=== PATIENT | male | born 1960 | race Caucasian/White ===

== ENCOUNTER 2016-10-23 19:50 | Emergency (ER) | payer MEDICAID ==
[~2016-10-23] VITALS: Ht 185.4 cm; Wt 81.6 kg
[2016-10-23 19:57] VITALS: BP 127/84
[2016-10-23] MEDS ORDERED: CYCLOBENZAPRINE HCL 10 MG TAB PO ONE (21:30)
[2016-10-23] MEDS ORDERED: IBUPROFEN 600 MG TAB PO ONE (21:30)
[2016-10-23] MEDS ORDERED: NEOMYCIN-BACITRACIN-POLYM UNITDOSE PKG TOP OINT TOP ONE (21:30)
[2016-10-23] MEDS ORDERED: BACITRACIN-POLYMYXIN B TOPICAL OINT UD TOP ONE (21:46)
== END 2016-10-23 21:54 | disposition home or self-care (01) ==
LOC: ER 19:52
DX: S16.1XXA Strain of muscle, fascia and tendon at neck level, initial encounter (principal); S00.03XA Contusion of scalp, initial encounter; S00.81XA Abrasion of other part of head, initial encounter; R51 Headache; Z88.1 Allergy status to other antibiotic agents; Z88.8 Allergy status to other drugs, medicaments and biological substances; W20.8XXA Other cause of strike by thrown, projected or falling object, initial encounter; Y93.89 Activity, other specified; Y99.8 Other external cause status; Y92.89 Other specified places as the place of occurrence of the external cause
CPT/HCPCS: 70450; 72125

== ENCOUNTER 2019-11-29 13:53 | Emergency (ER) | payer MEDICAID ==
[~2019-11-29] VITALS: Ht 182.9 cm; Wt 81.6 kg
[2019-11-29 13:54] VITALS: BP 129/93
== END 2019-11-29 15:22 | disposition home or self-care (01) ==
LOC: ER 13:53
DX: J06.9 Acute upper respiratory infection, unspecified (principal)
CPT/HCPCS: 71046

== ENCOUNTER 2024-06-02 01:55 | Inpatient (IN) | payer SELFPAY ==
[~2024-06-02] VITALS: Ht 180.3 cm; Wt 83.1 kg
[~2024-06-02 01:55] MED LIST: METH4PAK PO
[2024-06-02 02:30] VITALS: PULSE 96; RESP 18; O2SAT 97
[2024-06-02 02:30] LABS: Basophils # (auto) 0.1 10 ^3/uL (0-0.2); Basophils % (auto) 0.5 % (0.0-2.0); Eosinophils # (auto) 0.1 10 ^3/uL (0-0.8); Lymphocytes # (auto) 0.3 10 ^3/uL (0.4-5.4); Mean Corpuscular Hemoglobin 30.6 pg (28.0-32.0); White Blood Cell 13.5 10^3/uL (4.4-10.8)
[2024-06-02 02:31] LABS: Eosinophils % (auto) 0.9 % (0.0-7.0); Hemoglobin 18.8 g/dL (13.5-17.5); Lymphocytes % (auto) 2.2 % (10.0-50.0); Mean Corpuscular Hgb Conc. 33.2 g/dL (32.0-36.0); Mean Corpuscular Volume 92.3 fL (80.0-100.0); Monocytes # (auto) 0.5 10 ^3/uL (0-1.3); Neutrophils # (auto) 12.5 10 ^3/uL (1.6-8.6); Neutrophils % (auto) 92.4 % (37.0-80.0); Nucleated Red Blood Cells % 1.1 %; Platelet Count (auto) 279 10^3/uL (140-450); Red Blood Cells 6.14 10^6/uL (4.5-5.90); Red Cell Distribution Width 14.1 % (11.8-14.3)
[2024-06-02 02:33] LABS: Hematocrit 56.7 % (41.0-53.0)
[2024-06-02 02:44] LABS: Alanine Aminotransferase 18 U/L (7-40); Albumin 4.7 g/dL (3.2-4.8); Alkaline Phosphatase 148 U/L (46-116); Anion Gap 7 (5-15); Aspartate Aminotransferase 18 U/L (13-40); BUN/Creatinine Ratio 9.9 (10.0-20.0); Bilirubin, Total 0.7 mg/dL (0.2-1.0); Blood Urea Nitrogen 12 mg/dL (9-23); Calcium 9.9 mg/dL (8.7-10.4); Carbon Dioxide 20 mmol/L (20-31); Chloride 107 mmol/L (98-107); Glucose 109 mg/dL (74-106); Lipase 62 U/L (12-53); Potassium 4.7 mmol/L (3.5-5.1); Sodium 134 mmol/L (136-145)
[2024-06-02 02:44] LABS: Lactic Acid w/Reflex 2.1 mmol/L (0.4-2.0)
[2024-06-02] MEDS: SODIUM CHLORIDE 0.9% 1,000 ML IV ONE ×3 (02:57→07:39)
[2024-06-02] MEDS: PANTOPRAZOLE 40 MG/10 ML VIAL INJ IV ONE (02:59)
[2024-06-02] MEDS: ONDANSETRON HCL 4 MG/2 ML VIAL IV ONE ×2 (03:00→09:28)
[2024-06-02] MEDS: MORPHINE SULFATE 4 MG/ML SYR/VIAL IV ONE (03:01)
[2024-06-02] MEDS: IOHEXOL 300 MG/ML 100ML BOTTLE IJ ONE (03:16)
[2024-06-02] MEDS: cefTRIAXone 1GM/50ML D5W 50 ML IV ONE (06:43)
[2024-06-02] MEDS: metroNIDAZOLE 500MG/100ML 100 ML IV ONE (07:04)
[2024-06-02] MEDS ORDERED: HYDROcodone-ACET 5/325MG TAB PO PRN (09:30)
[2024-06-02] MEDS ORDERED: ACETAMINOPHEN 325 MG TAB PO PRN (09:30)
[2024-06-02] MEDS: MORPHINE SULFATE INJ 2 MG/ml SYRG IV ONE (09:33)
[2024-06-02] MEDS: SODIUM CHLORIDE 0.9% 1,000 ML IV SCH (09:50)
[2024-06-02] MEDS: ENOXAPARIN SOD 40 MG/0.4 ML SYRINGE SC SCH (10:22)
[2024-06-02] MEDS: PANTOPRAZOLE 40 MG/10 ML VIAL INJ IV SCH (10:22)
[2024-06-02] MEDS: NICOTINE 14 MG/24HR TOPICAL PATCH TD ONE (10:25)
[2024-06-02] MEDS: metroNIDAZOLE 500MG/100ML 100 ML IV SCH (14:08)
[2024-06-02] MEDS: MORPHINE SULFATE INJ 2 MG/ml SYRG IV PRN (14:12)
[2024-06-02] MEDS: ONDANSETRON HCL 4 MG/2 ML VIAL IV PRN (14:12)
[2024-06-02 20:00] VITALS: PULSE 86; RESP 19; O2SAT 96
[2024-06-02 23:13] VITALS: PULSE 66; RESP 18; O2SAT 95
[2024-06-03 01:00] VITALS: BP 100/66; PULSE 68; RESP 19; TEMP 98; O2SAT 97
[2024-06-03 05:00] VITALS: BP 113/75; PULSE 71; RESP 17; TEMP 98; O2SAT 96
[2024-06-03 07:54] LABS: Basophils # (auto) 0 10 ^3/uL (0-0.2); Basophils % (auto) 0.4 % (0.0-2.0); Eosinophils # (auto) 0.1 10 ^3/uL (0-0.8); Eosinophils % (auto) 1.9 % (0.0-7.0); Hematocrit 45.1 % (41.0-53.0); Hemoglobin 15.7 g/dL (13.5-17.5); Lymphocytes # (auto) 0.6 10 ^3/uL (0.4-5.4); Lymphocytes % (auto) 12.8 % (10.0-50.0); Mean Corpuscular Hemoglobin 31.7 pg (28.0-32.0); Mean Corpuscular Hgb Conc. 34.7 g/dL (32.0-36.0); Mean Corpuscular Volume 91.2 fL (80.0-100.0); Monocytes # (auto) 0.5 10 ^3/uL (0-1.3); Monocytes % (auto) 10.6 % (0.0-12.0); Neutrophils # (auto) 3.5 10 ^3/uL (1.6-8.6); Neutrophils % (auto) 74.3 % (37.0-80.0); Platelet Count (auto) 153 10^3/uL (140-450); Red Blood Cells 4.95 10^6/uL (4.5-5.90); Red Cell Distribution Width 13.4 % (11.8-14.3); White Blood Cell 4.7 10^3/uL (4.4-10.8)
[2024-06-03 07:59] LABS: Alanine Aminotransferase 13 U/L (7-40); Albumin 3.6 g/dL (3.2-4.8); Alkaline Phosphatase 109 U/L (46-116); Anion Gap 8 (5-15); Aspartate Aminotransferase 13 U/L (13-40); BUN/Creatinine Ratio 10.7 (10.0-20.0); Blood Urea Nitrogen 12 mg/dL (9-23); Calcium 8.5 mg/dL (8.7-10.4); Carbon Dioxide 21 mmol/L (20-31); Chloride 107 mmol/L (98-107); Glucose 57 mg/dL (74-106); Potassium 3.7 mmol/L (3.5-5.1); Sodium 136 mmol/L (136-145)
[2024-06-03 08:00] VITALS: PULSE 75; PULSE 79; O2SAT 98
[2024-06-03 08:00] LABS: Total Protein 5.8 g/dL (5.7-8.2)
[2024-06-03 08:08] LABS: Bilirubin, Total 0.5 mg/dL (0.2-1.0)
[2024-06-03 08:19] LABS: Urine Bacteria None Seen /hpf (None Seen)
[2024-06-03 08:52] LABS: Urine Blood Negative /uL (Negative); Urine Clarity Clear (Clear); Urine Color Yellow (Yellow); Urine Mucus FEW (None Seen); Urine Protein, UAD TRACE (Negative); Urine Specific Gravity 1.023 (1.001-1.035); Urine Urobilinogen Normal (Negative); Urine WBC 2 /hpf (0 - 3)
[2024-06-03 09:00] VITALS: BP 121/83; PULSE 80; RESP 18; TEMP 98; O2SAT 92
[2024-06-03] MEDS ORDERED: NICOTINE 14 MG/24HR TOPICAL PATCH TD SCH (10:00)
[2024-06-03] MEDS: cefTRIAXone 1GM/50ML D5W 50 ML IV SCH (11:04)
== END 2024-06-03 12:42 | disposition left against medical advice (07) | DRG 871 ==
LOC: ER 01:55 → EDBD 01:55 → TELE 09:36 → TELE-WESTW 22:42
PROVIDERS: ADMIT Registered Nurse; ATTEND Nurse Practitioner Acute Care
DX: A41.9 Sepsis, unspecified organism (principal); K85.90 Acute pancreatitis without necrosis or infection, unspecified; K52.9 Noninfective gastroenteritis and colitis, unspecified; Z53.29 Procedure and treatment not carried out because of patient's decision for other reasons; F17.210 Nicotine dependence, cigarettes, uncomplicated; E86.0 Dehydration; N18.9 Chronic kidney disease, unspecified; F10.20 Alcohol dependence, uncomplicated; Y90.9 Presence of alcohol in blood, level not specified; Z88.1 Allergy status to other antibiotic agents
CPT/HCPCS: 36415; 71045; 74177; 76705; 80053; 80320; 81001; 83605; 83690; 85025; 87040; 87086; 99291; G0378; J2405; J2470; J3490

== ENCOUNTER 2024-06-13 23:48 | Emergency (ER) | payer SELFPAY ==
[~2024-06-13] VITALS: Ht 180.3 cm; Wt 81.0 kg
[2024-06-13 23:53] VITALS: BP 118/79; PULSE 98; RESP 20; TEMP 97.3; O2SAT 98
[2024-06-14] MEDS ORDERED: LIDOCAINE 1% HCL (LOCAL ANESTH.) INJ 20ML MDV ONE (01:56)
[2024-06-14] MEDS: KETOROLAC TROMETH 60MG/2ML VIAL IM ONE (02:45)
[2024-06-14] MEDS: HYDROcodone-ACET 5/325MG TAB PO ONE (02:45)
== END 2024-06-14 03:15 | disposition home or self-care (01) ==
LOC: ER 23:48
DX: M70.51 Other bursitis of knee, right knee (principal); F17.210 Nicotine dependence, cigarettes, uncomplicated; I50.9 Heart failure, unspecified; Z88.1 Allergy status to other antibiotic agents; Z88.8 Allergy status to other drugs, medicaments and biological substances
CPT/HCPCS: 20610; 96372; 99283; J1885; J2003

== ENCOUNTER 2024-06-18 14:54 | Emergency (ER) | payer SELFPAY ==
[~2024-06-18] VITALS: Ht 180.3 cm; Wt 81.0 kg
[2024-06-18 14:59] VITALS: BP 131/93; PULSE 68; RESP 16; O2SAT 96
== END 2024-06-18 15:15 | disposition home or self-care (01) ==
LOC: ER 15:07
DX: M70.51 Other bursitis of knee, right knee (principal); F17.210 Nicotine dependence, cigarettes, uncomplicated; Z88.8 Allergy status to other drugs, medicaments and biological substances

== ENCOUNTER 2024-09-10 04:30 | Emergency (ER) | payer MEDICAID ==
[~2024-09-10] VITALS: Ht 182.9 cm; Wt 83.9 kg
[2024-09-10] MEDS ORDERED: IBUP-1456 PO (05:47)
--- NOTE | 2024-09-10 05:47 | ED.PDOC ---
SOB-HPI HPI Comments 63-YEAR-OLD MALE PRESENTS TO ER WITH COMPLAINTS OF COUGH X THREE DAYS. PATIENT REPORTS HE HAS BEEN EXPERIENCING A COUGH, CONGESTION AND INTERMITTENT BODY ACHES X3 DAYS. STATES HE HAS BEEN AROUND HIS GIRLFRIEND WHO HAS ALSO BEEN EXPERIENCING SIMILAR SYMPTOMS. HE RATES HIS CURRENT PAIN A 3/10. NOTES THAT HE TOOK A NORCO THAT HE GOT FROM HIS GIRLFRIEND FOR HIS PAIN WITH SOME RELIEF. PATIENT PRESENTS TO ER AMBULATORY ON ARRIVAL, WITH STEADY GAIT, IN NO DISTRESS. DENIES FEVER, NIGHT SWEATS, SHORTNESS OF BREATH, CHEST PAIN, HEMOPTYSIS, HEADACHE OR ANY FURTHER SYMPTOMS/COMPLAINTS Chief Complaint: Body Pain Time Seen by MD: 05:17 Primary Care Provider: UNKNOWN Reviewed notes: Nurses Notes, Medications, Allergies Information Source: Patient Mode of Arrival: Ambulatory Past Medical History Past Medical History (Other): NEPHRITIS CHILD Surgical History (Other): RIGHT KNEE SURGERY BILATERAL SHOULDER SURGERY Family History Family History: Unknown Social History Smoker: Cigarettes, Less Than 1 Pack/Day Alcohol: Denies ETOH Use Drugs: Denies Drug Use Lives In: Home Constitutional: reports: others ( STATED IN HPI) EENTM: reports: others ( STATED IN HPI) Respiratory: reports: others ( STATED IN HPI) Cardiovascular: denies: chest pain, dizzy spells, diaphoresis, Dyspnea on exertion, edema, irregular heart beat, left arm pain, lightheadedness, palpitations, PND, syncope, others Gastrointestinal: denies: abdomen distended, abdominal pain, blood streaked bowels, constipated, diarrhea, dysphagia, difficulty swallowing, hematemesis, melena, nausea, poor appetite, poor fluid intake, rectal bleeding, rectal pain, vomiting, others Genitourinary: denies: burning, dysuria, flank pain, frequency, hematuria, incontinence, penile discharge, penile sore, pain, testicle pain, testicle swelling, urgency, others Neurological: denies: dizziness, fainting, headache, left sided numbness, left sided weakness, numbness, paresthesia, pre-existing deficit, right sided numbness, right sided weakness, seizure, speech problems, tingling, tremors, weakness, others Musculoskeletal: denies: back pain, gout, joint pain, joint swelling, muscle pain, muscle stiffness, neck pain, others Integumetry: denies: bruises, change in color, change in hair/nails, dryness, laceration, lesions, lumps, rash, wounds, others Allergic/Immunocompromised: denies: Difficulty Healing, Frequent Infections, Hives, Itching, others Hematologic/Lymphatic: denies: anemia, blood clots, easy bleeding, easy bruising, swollen glands, others Endocrine: denies: excessive hunger, excessive sweating, excessive thirst, excessive urination, flushing, intolerance to cold, intolerance to heat, unexplained weight gain, unexplained weight loss, others Psychiatric: denies: anxiety, bipolar disorder, depression, hopeless, panic disorder, schizophrenia, sleepless, suicidal, others Physical Exam General Appearance: No Apparent Distress HEENT: Normal ENT Inspection, PERRL/EOMI, Pharynx Normal, TMs Normal Neck: Full Range of Motion, Non-Tender, Normal Respiratory: Chest Non-Tender, Lungs Clear, No Accessory Muscle Use, No Respiratory Distress, Normal Breath Sounds Cardiovascular: No Murmur, No Gallop, Regular Rate/Rhythm Breast Exam: Deferred Gastrointestinal: NOT DONE Genitalia: Deferred Pelvic: Deferred Rectal: Deferred Extremities: Normal capillary refill, Normal range of motion Neurologic: Alert, convention manager II-XII nml as Tested, No Motor Deficits, Normal Affect, Normal Mood, No Sensory Deficits Cerebellar Function: Normal Reflexes: Normal Skin: Dry, Normal Color, Warm Peripheral Pulses: 2+ Radial (R), 2+ Radial (L), 2+ Brachial (R), 2+ Brachial (L) Lymphatic: No Adenopathy Was a procedure done? Was a procedure done?: No Sedation Sedation?: No Differential Dx Differential Diagnosis: Pneumonia, Respiratory Distress, Otitis Media X-Ray, Labs, Meds, VS Vital Signs Date Time Temp Pulse Resp B/P (MAP) Pulse Ox O2 Delivery O2 Flow Rate FiO2 09/10/24 04:40 97.5 93 16 125/92 (103) 95 TORADOL 60 MG IM ORDERED SMOKING CESSATION DISCUSSED AND ADVISED PATIENT IN NO DISTRESS DURING ER VISIT/PRIOR TO DISCHARGE ADVISED TO DRINK PLENTY OF FLUIDS ADVISED TO FOLLOW UP WITH PCP IN 1-2 DAYS PATIENT VERBALIZED UNDERSTANDING AND AGREEABLE WITH CURRENT PLAN OF CARE ADVISED TO RETURN TO ER IMMEDIATELY IF SYMPTOMS WORSEN Time of 1ST Reevaluation: 05:20 Reevaluation 1ST: N/A Patient Education/Counseling: Diagnosis, Treatment, Prognosis, Need For Follow Up Family Education/Counseling: No Family Present Departure 1 Departure Time of Disposition: 05:42 Impression: Primary Impression: Viral URI Disposition: 01 HOME / SELF CARE / HOMELESS Condition: Stable e-Prescriptions Ibuprofen (Ibuprofen) 800 Mg Tab 1 TAB PO TID PRN, #30 TAB 0 Refills Prov: IAN KILGORE 09/10/24 Discharged With: Self Critical Care Note Critical Care Time?: No Stability Stability form required: No Heart Score Heart Score: Heart Score Response (Comments) Value History N/A 0 EKG N/A 0 Age N/A 0 Risk Factors N/A 0 Troponin N/A 0 Total 0 IAN KILGORE Sep 10, 2024 05:47
[2024-09-10 05:50] VITALS: BP 113/79; PULSE 88; RESP 18; TEMP 97.7; O2SAT 97
[2024-09-10] MEDS: KETOROLAC TROMETH 60MG/2ML VIAL IM ONE (06:02)
== END 2024-09-10 06:05 | disposition home or self-care (01) ==
LOC: ER 04:30
DX: J06.9 Acute upper respiratory infection, unspecified (principal); B97.89 Other viral agents as the cause of diseases classified elsewhere; F17.210 Nicotine dependence, cigarettes, uncomplicated; N05.9 Unspecified nephritic syndrome with unspecified morphologic changes; Z98.890 Other specified postprocedural states
CPT/HCPCS: 96372; 99283; J1885

== ENCOUNTER 2025-05-06 01:59 | Emergency (ER) | payer MEDICARE ==
[~2025-05-06] VITALS: Ht 182.9 cm; Wt 80.1 kg
[~2025-05-06 01:59] MED LIST changes: +IBUP-1456 PO; -METH4PAK PO
--- NOTE | 2025-05-06 03:03 | ED.PDOC ---
Eye-HPI HPI Comments 64-YEAR-OLD MALE PRESENTS TO THE ED WITH C/C OF LEFT EAR PAIN AND CAN NOT HEAR OUT OF IT X 7 DAYS. PATIENT REPORTS CHRONIC HISTORY OF EUSTACHIAN TUBE DYSFUNCTION SINCE A CHILD. DENIES FEVERS, N/V OR INJURY Chief Complaint: Earache Time Seen by MD: 02:49 Primary Care Provider: UNKNOWN Reviewed Notes: Nurses Notes, Medications, Allergies Allergies: Coded Allergies: Cortisone (Verified Allergy, Unknown, 07/20/16) Tetracycline (Verified Allergy, Unknown, 07/20/16) Home Meds Active Scripts Cefdinir (Cefdinir) 300 Mg Cap, 1 CAP PO BID for 7 Days, #14 CAP Prov:PAVEL ELLER ELECTRONICS ENGINEER 05/06/25 Methylprednisolone (Medrol Dosepak) 4 Mg Boris, 4 MG PO UD for 6 Days, #21 TAB UAD Prov:PAVEL ELLER ELECTRONICS ENGINEER 05/06/25 Ibuprofen (Ibuprofen) 800 Mg Tab, 1 TAB PO TID PRN, #30 TAB 0 Refills Prov:IAN KILGORE 09/10/24 Information Source: Patient Mode of Arrival: Ambulatory Past Medical History PAST MEDICAL HISTORY: Denies Surgical History: Denies all surgeries Family History Family History: Reviewed,noncontributory to illness, Unknown Social History Smoker: Cigarettes, Less Than 1 Pack/Day Alcohol: Denies ETOH Use Drugs: Denies Drug Use Lives In: Home All Other Systems: Reviewed and Negative (see hpi) Physical Exam General Appearance: No Apparent Distress, Normal HEENT: Pharynx Normal, TM Abnormal (L) (Crystallization of fluid behind tympanic membrane drainage trace erythema canal clear) Neck: Full Range of Motion, Non-Tender Respiratory: Lungs Clear, No Respiratory Distress, Normal Breath Sounds Cardiovascular: No Murmur, Normal Peripheral Pulses, Regular Rate/Rhythm Breast Exam: Deferred Gastrointestinal: Non Tender, Soft Genitalia: Deferred Pelvic: Deferred Rectal: Deferred Extremities: Normal range of motion Musculoskeletal : Apperance: Normal Neurologic: Alert, No Motor Deficits, Normal Affect, Normal Mood, No Sensory Deficits Cerebellar Function: Normal Reflexes: NOT DONE Skin: Dry, Normal Color, Warm Lymphatic: No Adenopathy Was a procedure done? Was a procedure done?: No EENT DIFF Eye: N/A Ear: Cerumen Impaction, Foreign Body, Otitis Externa, Barotrauma, Otitis Media, Perforation, Dental, Pharyngitis X-Ray, Labs, Meds, VS Vital Signs Date Time Temp Pulse Resp B/P (MAP) Pulse Ox O2 Delivery O2 Flow Rate FiO2 05/06/25 02:01 97.9 106 16 136/102 95 97.9 Current Medications Medications (Trade) Dose Ordered Sig/Mary Jane Route Start Time Stop Time Status Last Admin Dexamethasone Sodium Phosphate (Decadron Injection) 10 mg ONCE ONCE IM 05/06/25 03:15 05/06/25 03:16 DC 05/06/25 03:27 X-Ray, Labs, Meds, VS Comment PATIENT GIVEN DECADRON 10 MG IM REPORTS IMPROVEMENT PAIN. SCRIPT TRIAL OF ANTIBIOTIC AND AND MEDROL DOSEPAK. ADVISED TO FOLLOW UP WITH HIS PCP FOR REFERRAL TO ENT. ER RETURN PRECAUTIONS GIVEN PATIENT INDICATES UNDERSTANDING AGREES WITH DISCHARGE PLAN OF CARE Time of 1ST Reevaluation: 02:59 Reevaluation 1ST: Unchanged Time of 2ND Reevaluation: 03:44 Reevaluation 2ND: Improved Patient Education/Counseling: Diagnosis, Treatment, Prognosis, Need For Follow Up Family Education/Counseling: No Family Present SEPSIS Sepsis Screen Date sepsis recognized/suspect: May 06, 2025 Time Sepsis recognized/suspect: 0203 Recent Procedure: No On Antibiotic Therapy: No Respiratory Rate >20: No Heart Rate >90: No Temp<36 C (96.8 F) or >38.3 C: No SBP <90 or MAP <65 mmHG: No New Acute Mental Status Change: No Is the patient on CPAP, BIPAP,: No Vital Signs Date Time Temp Pulse Resp B/P (MAP) Pulse Ox O2 Delivery O2 Flow Rate FiO2 05/06/25 02:01 97.9 106 16 136/102 95 97.9 Medications Medications Dose Ordered Sig/Mary Jane Route Start Time Stop Time Status Last Admin Dose Admin Dexamethasone Sodium Phosphate 10 mg ONCE ONCE IM 05/06/25 03:15 05/06/25 03:16 DC 05/06/25 03:27 Departure 1 Departure Time of Disposition: 03:44 Impression: Primary Impression: Chronic dysfunction of left eustachian tube Disposition: 01 HOME / SELF CARE / HOMELESS Condition: Stable e-Prescriptions Cefdinir (Cefdinir) 300 Mg Cap 1 CAP PO BID for 7 Days, #14 CAP Prov: PAVEL ELLER ELECTRONICS ENGINEER 05/06/25 Methylprednisolone (Medrol Dosepak) 4 Mg Boris 4 MG PO UD for 6 Days, #21 TAB UAD Prov: PAVEL ELLER 05/06/25 Discharged With: Self Critical Care Note Critical Care Time?: No Stability Stability form required: PAVEL Martinez May 06, 2025 03:03
[2025-05-06 03:45] VITALS: BP 102/69; PULSE 75; TEMP 97.9
[2025-05-06] MEDS ORDERED: CEFD300C2 PO (03:46)
[2025-05-06] MEDS ORDERED: METH4PAK PO (03:46)
[2025-05-06 04:15] VITALS: RESP 16; O2SAT 96
== END 2025-05-06 04:18 | disposition home or self-care (01) ==
LOC: ER 01:59
DX: H69.92 Unspecified Eustachian tube disorder, left ear (principal); F17.210 Nicotine dependence, cigarettes, uncomplicated; Z88.1 Allergy status to other antibiotic agents; Z79.899 Other long term (current) drug therapy
CPT/HCPCS: 96372; 99283; J1100